=== PATIENT | male | born 1980 | race African-American/Black ===

== ENCOUNTER 2025-04-30 09:34 | Emergency (ER) | payer OTHER ==
[~2025-04-30] VITALS: Ht 177.8 cm; Wt 92.1 kg
[2025-04-30] MEDS ORDERED: DICL100G10 TOP (09:57)
[2025-04-30] MEDS ORDERED: AMLO1TAB25 PO (09:57)
[2025-04-30 11:51] LABS: PLATELET COUNT, AUTOMATED 138 10^3/uL (150-450)
[2025-04-30 12:04] LABS: INR 0.98
[2025-04-30 12:15] LABS: CK-MB VALUE MASS 2.6 NG/ML (<3.6)
[2025-04-30 12:16] LABS: CALCIUM LEVEL 8.9 MG/DL (8.5-10.1); CARBON DIOXIDE LEVEL 30 MMOL/L (20-31); CHLORIDE LEVEL 104 MMOL/L (98-107); CPK CREATINE PHOSPHOKINASE 251 U/L (46-171); CREATININE FOR GFR 0.96 MG/DL (0.70-1.30); GLOMERULAR FILTRATION RATE > 90.0 (>60); MB/CK RELATIVE INDEX 1.03 (< OR =4); POTASSIUM SERUM 3.9 MMOL/L (3.5-5.1); SODIUM LEVEL 142 MMOL/L (136-145)
[2025-04-30 12:20] LABS: BASO # 0.0 10^3/uL (0.0-0.2); BASO % 0.4 % (0.0-1.0); EOS # 0.0 10^3/uL (0.0-0.5); EOS % 1.2 % (0.0-3.0); LYMPH # 1.5 10^3/uL (1.5-5.0); LYMPH % 57.9 % (24.0-44.0); MONO # 0.2 10^3/uL (0.0-0.8); MONO % 9.3 % (2.0-8.0); NEUTROPHILS # 0.8 10^3/uL (1.5-8.5); NEUTROPHILS % 31.2 % (36.0-66.0)
[2025-04-30 13:19] LABS: CK-MB VALUE MASS 2.3 NG/ML (<3.6)
[2025-04-30 13:23] LABS: CPK CREATINE PHOSPHOKINASE 246.0 U/L (46-171); MB/CK RELATIVE INDEX 0.93 (< OR =4)
[2025-04-30 14:24] LABS: KETONE, URINE AUTO RFX NEGATIVE (NEGATIVE); LEUKOCYTE ESTERASE UR AUTO RFX NEGATIVE (NEGATIVE); NITRITE, URINE AUTO RFX NEGATIVE (NEGATIVE); RBC, URINE AUTO RFX 0 /HPF (0-3); SQUAM EPITHELIAL CELL UR AURFX 0 /HPF (0-6); WBC, URINE AUTO RFX 0 /HPF (0-3)
[2025-04-30 14:30] LABS: C REACTIVE PROTEIN QUANTITATIV < 0.50 MG/DL (<1.0)
[2025-04-30 14:32] LABS: ERYTHROCYTE SEDIMENTATION RATE 2 mm/hr (0-15)
[2025-04-30] MEDS ORDERED: ISOVUE-370 76% 100 ML VIAL As Ordered ONE (14:33)
[2025-04-30] MEDS ORDERED: KETO-204 PO (17:57)
[2025-04-30 18:15] VITALS: BP 160/105; O2SAT 98
[2025-04-30 18:21] VITALS: TEMP 97.5
== END 2025-04-30 18:31 | disposition home or self-care (01) ==
LOC: M ED 09:34
DX: G43.909 Migraine, unspecified, not intractable, without status migrainosus (principal); D70.9 Neutropenia, unspecified; J90 Pleural effusion, not elsewhere classified; I10 Essential (primary) hypertension; R00.1 Bradycardia, unspecified
CPT/HCPCS: 70450; 70544; 70551; 71045; 71275; 80047; 80048; 81001; 82550; 82553; 84145; 84484; 85025; 85610; 85652; 85730; 86140; 87486; 87581; 87633; 87798; 93005; 93041; 94760; 99285; Q9967

== ENCOUNTER 2025-07-07 07:19 | Emergency (ER) | payer OTHER ==
[~2025-07-07] VITALS: Ht 177.8 cm; Wt 93.3 kg
[~2025-07-07 07:19] MED LIST: AMLO1TAB25 PO; DICL100G10 TOP; KETO-204 PO
[2025-07-07] MEDS ORDERED: HYDR-3490 (07:33)
[2025-07-07] MEDS ORDERED: SUMA50TA2 (07:33)
[2025-07-07] MEDS ORDERED: FLON1SPR NARES (11:11)
[2025-07-07] MEDS ORDERED: IBUP600T42 PO (11:11)
[2025-07-07] MEDS ORDERED: CETI10CH PO (11:11)
[2025-07-07 11:16] VITALS: BP 159/99; TEMP 97.9; O2SAT 99
== END 2025-07-07 11:22 | disposition home or self-care (01) ==
LOC: M ED 07:19
DX: R51.9 Headache, unspecified (principal); H65.03 Acute serous otitis media, bilateral; M25.561 Pain in right knee; I10 Essential (primary) hypertension; Z79.899 Other long term (current) drug therapy